=== PATIENT | male | born 1960 | race Caucasian/White ===

== ENCOUNTER 2017-02-11 23:52 | Emergency (ER) | payer MEDICARE, OTHER ==
[~2017-02-11 23:52] MED LIST: ALBUTEROL2.5 MG/3 M INH; ASPIRIN EC81 MG PO; ASPIRIN81 MG PO; CARAFATE1 GM PO; DUONEB 2.5-0.5MG3 ML NEB; HYDROCODON-ACE1 EAC4 PO; HYDROCODON-ACE1 EAC6 PO; LEVAQUIN500 MG PO; LIPITOR20 MG PO; LISINOPRIL10 MG PO; METOPROLOL TART25 MG PO; NEURONTIN600 MG PO; NEURONTIN800 MG PO; NEXIUM40 MG PO; NICODERM 14MG PA1 EA TD; NICODERM 7MG PAT1 EA TD; PANTOPRAZOLE SO40 MG PO; PREDNISONE5 MG PO; PROZAC20 MG PO; SENOKOT-S TABL1 EACH PO; SINGULAIR10 MG PO; SPIRIVA18 MCG INH; SYMBICORT 160/4.6 GM INH; THEO-24200 MG PO; THEOPHYLLINE C300 MG PO; ULTRAM50 MG PO; VALIUM5 MG PO; VENTOLIN HFA8 GM INH; ZESTRIL10 MG PO; ZITHROMAX500 MG PO
== END 2017-02-12 01:08 | disposition other institution (70) ==
LOC: ER 23:52
DX: J44.0 Chronic obstructive pulmonary disease with (acute) lower respiratory infection (principal); J18.9 Pneumonia, unspecified organism; R07.9 Chest pain, unspecified; R00.0 Tachycardia, unspecified; Z99.81 Dependence on supplemental oxygen; Z87.891 Personal history of nicotine dependence; Z79.899 Other long term (current) drug therapy
CPT/HCPCS: 99284; 99285-25

== ENCOUNTER 2017-02-11 23:52 | Inpatient (IN) | payer MEDICARE, OTHER ==
[~2017-02-11] VITALS: Ht 177.8 cm; Wt 61.0 kg
[2017-02-12 00:20] LABS: BASO % 0.3 % (0.2-1.2); EOS # 0.2 10_X3_uL (0.0-0.5); EOS % 1.5 % (0.8-7.0); GRAN # 6.9 10_X3_uL (1.8-5.4); GRAN % 62.8 % (34.0-67.9); HEMATOCRIT 43.1 % (40-51); HEMOGLOBIN 13.8 g/dL (13.7-17.5); LYMPH # 2.9 10_X3_uL (1.3-3.6); LYMPH % 26.4 % (21.8-53.1); MEAN CORPUSCULAR HEMOGLOBIN 27.9 pg (27.0-33.0); MEAN CORPUSCULAR VOLUME 87.1 fL (79-92); MEAN PLATELET VOLUME 8.7 fl (7.5-11.5); PLATELET COUNT 449 x10_3/uL (163-337); RED BLOOD COUNT 4.95 x10_6/uL (4.6-6.1); RED CELL DISTRIBUTION WIDTH 14.9 % (11.6-14.4)
[2017-02-12 00:21] LABS: ARTERIAL BLD GAS O2 SATURATION 88.6 % (94-98); ARTERIAL BLOOD GAS BASE EXCESS 5.2 mmol/L (-2.0-3.0); ARTERIAL BLOOD GAS HCO3 30.1 mmol/L (22-26); ARTERIAL BLOOD GAS PCO2 46.8 mmHg (35-48); ARTERIAL BLOOD GAS pH 7.42 (7.35-7.45)
[2017-02-12 00:33] LABS: ALBUMIN 3.6 gm/dL (3.4-5.0); ALKALINE PHOSPHATASE 87 U/L (50-136); ALT/SGPT 14 U/L (7.53-40.17); AST/SGOT 16 U/L (6.66-35.34); BILIRUBIN,TOTAL 0.66 mg/dL (0.0-1.0); BLOOD UREA NITROGEN 9 mg/dL (7-18); CALCIUM 8.8 mg/dL (8.7-10.7); CARBON DIOXIDE 29 mmol/L (21-32); CREATININE 0.5 mg/dL (0.6-1.3); GLUCOSE,RANDOM 108 mg/dL (70-99); POTASSIUM 3.8 mmol/L (3.5-5.1); SODIUM 133 mmol/L (136-145); TOTAL PROTEIN 8.7 gm/dL (6.4-8.2)
[2017-02-12 05:21] LABS: BLOOD UREA NITROGEN 11 mg/dL (7-18); CALCIUM 8.8 mg/dL (8.7-10.7); CARBON DIOXIDE 28 mmol/L (21-32); CKMB 1.7 ng/ml (0.0-5.0); CREATININE 0.5 mg/dL (0.6-1.3); GLUCOSE,RANDOM 133 mg/dL (70-99); POTASSIUM 4.7 mmol/L (3.5-5.1); SODIUM 135 mmol/L (136-145)
[2017-02-12 05:22] LABS: TROP-I < 0.30 NG/ML (0.00-0.30)
[2017-02-12 05:28] LABS: HEMATOCRIT 43.6 % (40-51); HEMOGLOBIN 13.8 g/dL (13.7-17.5); MEAN CORPUSCULAR HEMOGLOBIN 27.6 pg (27.0-33.0); MEAN CORPUSCULAR HGB CONC 31.7 g/dL (32.0-36.0); MEAN CORPUSCULAR VOLUME 87.2 fL (79-92); RED CELL DISTRIBUTION WIDTH 14.9 % (11.6-14.4); WHITE BLOOD COUNT 9.5 x10_3/uL (4.2-9.1)
[2017-02-12 06:45] LABS: URINE BILIRUBIN NEGATIVE (NEGATIVE); URINE BLOOD NEGATIVE (NEGATIVE); URINE GLUCOSE (UA) NORMAL (NORMAL); URINE KETONE NEGATIVE (NEGATIVE); URINE LEUKOCYTE ESTERASE NEGATIVE (NEGATIVE); URINE NITRATE NEGATIVE (NEGATIVE); URINE PROTEIN TRACE (NEGATIVE)
[2017-02-13 07:10] LABS: HEMOGLOBIN 12.6 g/dL (13.7-17.5); MEAN CORPUSCULAR HEMOGLOBIN 27.5 pg (27.0-33.0); MEAN CORPUSCULAR HGB CONC 31.5 g/dL (32.0-36.0); MEAN CORPUSCULAR VOLUME 87.1 fL (79-92); MEAN PLATELET VOLUME 9.3 fl (7.5-11.5); RED BLOOD COUNT 4.59 x10_6/uL (4.6-6.1); RED CELL DISTRIBUTION WIDTH 14.7 % (11.6-14.4); WHITE BLOOD COUNT 8.1 x10_3/uL (4.2-9.1)
[2017-02-13 07:31] LABS: AHDL CHOLESTEROL 37 mg/dL (>40); CALCIUM 8.7 mg/dL (8.7-10.7); CARBON DIOXIDE 28 mmol/L (21-32); CHOLESTEROL 104 mg/dL (0-200); CREATININE 0.5 mg/dL (0.6-1.3); GLUCOSE,RANDOM 133 mg/dL (70-99); LDL CHOLESTEROL 42 mg/dL (0-99); MAGNESIUM 2.2 mg/dL (1.8-2.4); POTASSIUM 4.8 mmol/L (3.5-5.1); SODIUM 140 mmol/L (136-145); TRIGLYCERIDES 103 mg/dL (30-200)
[2017-02-13 07:33] LABS: BLOOD UREA NITROGEN 20 mg/dL (7-18)
[2017-02-14 07:30] LABS: HEMATOCRIT 38.7 % (40-51); HEMOGLOBIN 12.2 g/dL (13.7-17.5); MEAN CORPUSCULAR HEMOGLOBIN 27.7 pg (27.0-33.0); MEAN CORPUSCULAR HGB CONC 31.5 g/dL (32.0-36.0); MEAN PLATELET VOLUME 9.3 fl (7.5-11.5); RED BLOOD COUNT 4.4 x10_6/uL (4.6-6.1); RED CELL DISTRIBUTION WIDTH 14.4 % (11.6-14.4); WHITE BLOOD COUNT 8.1 x10_3/uL (4.2-9.1)
[2017-02-14 07:45] LABS: BLOOD UREA NITROGEN 18 mg/dL (7-18); CALCIUM 8.5 mg/dL (8.7-10.7); CARBON DIOXIDE 30 mmol/L (21-32); CREATININE 0.5 mg/dL (0.6-1.3); GLUCOSE,RANDOM 126 mg/dL (70-99); POTASSIUM 4.6 mmol/L (3.5-5.1); SODIUM 137 mmol/L (136-145)
== END 2017-02-14 11:35 | disposition home or self-care (01) | DRG 196 ==
LOC: ER 23:52 → MS 02-12 01:08
PROVIDERS: General Practice; ADMIT Family Medicine
PROC: 3E0234Z Introduction of Serum, Toxoid and Vaccine into Muscle, Percutaneous Approach (ICD-10-PCS; principal; 2017-02-14)
DX: J84.9 Interstitial pulmonary disease, unspecified (principal); J96.01 Acute respiratory failure with hypoxia; J44.1 Chronic obstructive pulmonary disease with (acute) exacerbation; R07.89 Other chest pain; Z99.81 Dependence on supplemental oxygen; Z23 Encounter for immunization; Z87.891 Personal history of nicotine dependence; I10 Essential (primary) hypertension; F41.9 Anxiety disorder, unspecified; K21.9 Gastro-esophageal reflux disease without esophagitis; Z90.49 Acquired absence of other specified parts of digestive tract; Z98.890 Other specified postprocedural states; Z79.891 Long term (current) use of opiate analgesic; Z79.899 Other long term (current) drug therapy; G47.00 Insomnia, unspecified
CPT/HCPCS: 36415; 36600; 71010; 71250; 80048; 80053; 80061; 80307; 81003; 82550; 82553; 82803; 82962; 83605; 83735; 83880; 85025; 86738; 87040; 87070; 87186; 87205; 87400; 87449; 90653; 93005; 93041; 94640; 94664; 96374; 99070; 99284; 99285-25; G0008; J1885; J2930; J7050